=== PATIENT | male | born 1990 | race African-American/Black ===

== ENCOUNTER 2016-12-22 06:53 | Emergency (ER) | payer OTHER ==
[~2016-12-22] VITALS: Ht 182.9 cm; Wt 90.0 kg
[2016-12-22 07:03] VITALS: BP 162/77; PULSE 80; RESP 18; TEMP 98.6; O2SAT 100
--- NOTE | 2016-12-22 07:13 | PD ---
HPI Chief Complaint: Laceration/Skin Injury Time Seen by Provider: 07:09 Travel History International Travel<30 days: No Contact w/Intl Traveler<30days: No Traveled to known affect area: No History of Present Illness HPI 26-year-old male patient presents to the ER, had been working on machinery at work, when a heavy machinery fell on his right index finger cutting off the fingertip. He brings in the fingertip. Injury happened at around 6:45 AM. He denies any other issues or injuries. Bleeding has been controlled. He currently denies significant pain. Modifying Factors: None Associated Signs & Symptoms: Fingertip amputation of the right index finger Risk Factors: None PFSH Past Medical History Respiratory: Yes (pneumothrorax 2012) Tetanus Vaccination: Never Vaccinated Influenza Vaccination: No ?: Not Social History Alcohol Use: Yes (occcasion) Tobacco Use: No Substance Use: No Allergies-Medications (Allergen,Severity, Reaction): Coded Allergies: No Known Allergies (Unverified , 12/22/16) Review of Systems Except as stated in HPI: all other systems reviewed are Neg Physical Exam Narrative GENERAL: Well-nourished, well-developed young -[place] male patient. In no acute distress. Awake and oriented 3. SKIN: Focused skin assessment warm/dry. HEAD: Normocephalic. NECK: Supple, trachea midline. No JVD or lymphadenopathy. Right hand: There is a notable fingertip amputation at the level of the mid distal phalanx. Nail bed appears to be in place. No underlying subungual hematoma. Bleeding is controlled. Notable bone on initial evaluation. Data Data Last Documented VS Vital Signs Date Time Temp Pulse Resp B/P Pulse Ox O2 Delivery O2 Flow Rate FiO2 12/22/16 07:03 80 18 12/22/16 07:03 98.6 162/77 100 Room Air Orders Finger ([id number]) (12/22/16 07:09) Tetanus/Diphtheria Tox Adult (Tetanus/Di (12/22/16 07:15) Cefazolin 2 Gm Premix (Ancef 2 Gm Premix (12/22/16 07:15) Hydromorphone Pf Inj (Dilaudid Pf Inj) (12/22/16 07:30) Ondansetron Inj (Zofran Inj) (12/22/16 07:30) MDM Medical Decision Making Medical Screen Exam Complete: Yes Emergency Medical Condition: Yes Medical Record Reviewed: Yes Differential Diagnosis Fingertip amputation Narrative Course X-ray shows fingertip amputation at the distal phalanx. Case was discussed with Dr. Cruz and x-ray and picture of the fingertip has been forwarded by text to him. He states that he does not expect the fingertip to survive and that we could Xeroform over the fingertip area after irrigation and have the patient follow-up with him in his office next week. Patient was given Ancef and tetanus in the ER. He was given Keflex for the week. Return for any worsening in pain, redness, signs of infection, or new issues as needed. The plan was discussed with the patient he states understanding. Procedures Procedure Narrative Fingertip amputation treatment: Fingertip was irrigated with copious normal saline. Xeroform was placed over the application region and clean gauze was applied. Diagnosis Primary Impression: Fingertip amputation Referrals: Sourav Cruz III, MD Med/Other Pt SpecificInfo: Prescription(s) given Scripts Hydrocodone-Acetaminophen (Lortab)5-325 Mg Tab1 Tab PO Q6H PRN (PAIN GREATER THAN 5) #12 TAB Ref 0 Prov:Royce Garcia MD 12/22/16 Ibuprofen (Motrin Ib)200 Mg [id number] Mg PO Q6H PRN (PAIN SCALE 1 TO 10) #20 TAB Ref 0 Prov:Royce Garcia MD 12/22/16 Cephalexin (Keflex)500 Mg [id number] Mg PO Q6H 7 Days Ref 0 Prov:Royce Garcia MD 12/22/16 Disposition: 01 DISCHARGE HOME Condition: Stable Royce Garcia MD Dec 22, 2016 07:13
[2016-12-22] MEDS ORDERED: TETANUS/DIPHTHERIA TOXOID ADULT 0.5 ML VIAL IM ONE (07:15)
[2016-12-22] MEDS ORDERED: ceFAZolin 2 GM PREMIX 50 ML IV ONE (07:15)
[2016-12-22] MEDS ORDERED: HYDROmorphone HCL PF 1 MG/ML VIAL IV PUSH ONE (07:30)
[2016-12-22] MEDS ORDERED: ONDANSETRON HCL 4 MG/2 ML VIAL IV PUSH ONE (07:30)
[2016-12-22] MEDS ORDERED: CEPH-460 PO (07:57)
[2016-12-22] MEDS ORDERED: MOTR200T4 PO (07:57)
[2016-12-22] MEDS ORDERED: HYDR-3533 PO (07:57)
--- NOTE | 2016-12-22 08:20 | RADRPT ---
EXAM DATE/TIME: 12/22/2016 07:26 [facility] COMPARISON: No previous studies available for comparison. INDICATIONS : Pain from injury to right hand, second digit due to accident with tool at work. MEDICAL HISTORY : None. SURGICAL HISTORY : None. ENCOUNTER: Initial ACUITY: 1 day PAIN SCORE: 10/10 LOCATION: Right second digit. FINDINGS: There has been amputation of the tip of the right index finger with a portion of the right second dis iris phalangeal tuft being amputated along with the overlying soft tissues. CONCLUSION: 1. Amputation of the tip of the right second distal phalangeal tuft and overlying soft tissues. Felipe Preston MD on December 22, 2016 at 7:32 Board Certified Radiologist. This report was verified electronically.
== END 2016-12-22 08:39 | disposition home or self-care (01) ==
LOC: NEPE 06:53
DX: S68.120A Partial traumatic metacarpophalangeal amputation of right index finger, initial encounter (principal); W31.9XXA Contact with unspecified machinery, initial encounter; Y93.89 Activity, other specified; Y99.0 Civilian activity done for income or pay; Z23 Encounter for immunization
CPT/HCPCS: 73140; 90471; 90714; 96374; 96375; 99285; J0690; J1170; J2405